=== PATIENT | male | born 1950 | race Caucasian/White ===

== ENCOUNTER → 2017-06-29 | Outpatient (CLI) | payer MEDICARE ==
--- NOTE | 2017-06-29 15:30 | XR ---
Left elbow HISTORY: Trauma one month prior, pain 3 views of the left elbow Bone mineralization, joint spaces and alignment are maintained. No evident joint effusion. Some minim al marginal spurring at the medial aspect. Vague density present at the level of the volar aspect of the joint measures approximately 3 mm. IMPRESSION: No fracture or dislocation. Mild osteoarthritic change suspected. Elbow MRI may be of jeanne efit. 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
== END | disposition home or self-care (01) ==
LOC: RADXRMAIN 14:43
PROVIDERS: ATTEND Family Medicine
DX: S59.902A Unspecified injury of left elbow, initial encounter (principal)

== ENCOUNTER → 2017-07-11 | Outpatient (CLI) | payer MEDICARE ==
--- NOTE | 2017-07-11 07:13 | MR ---
EXAMINATION TYPE: MR elbow LT wo con DATE OF EXAM: 07/11/2017 COMPARISON: NONE HISTORY: pain in lt elbow Standard multiplanar, multisequence MRI departmental protocol Multiplanar, multisequence images of the left elbow were acquired. Diffusion weighted imaging was per formed. FINDINGS: No acute osseous lesion is seen. There is no significant joint effusion. There is minimal h ypertrophic change in the ulnar trochlear articulation. The ACL, radial collateral ligament proper as well as the lateral ulnar collateral ligament is intact. The origin of the common extensor tendon is unremarkable. There is mild thickening and some abnormal signal in the common flexor tendon which ma y represent some tendinosis. The insertions of both the biceps tendon and brachialis tendon are unremarkable. The ulnar nerve is a s well as visualized portions of the radial nerve appear normal. I do not identify a loose body. IMPRESSION: 1. Mild degenerative change. 2. Thickening of the origin of the common flexor tendon with some increased signal may represent tend inosis.
== END ==
LOC: RADMRIMAIN 05:54
PROVIDERS: ATTEND Nurse Practitioner Family
DX: M19.032 Primary osteoarthritis, left wrist (principal)

== ENCOUNTER → 2018-08-18 | Outpatient (CLI) | payer MEDICARE ==
--- NOTE | 2018-08-18 11:47 | XR ---
EXAMINATION TYPE: XR chest 2V DATE OF EXAM: 08/18/2018 COMPARISON: NONE HISTORY: Status post chest tube removal or pneumothorax TECHNIQUE: Frontal and lateral views of the chest are obtained. FINDINGS: There is extensive subcutaneous emphysema extending along the neck and right lateral chest wall. Ninth rib fracture shows minimal displacement laterally. There is blunting the right costophre ellie angle. Lucency is present along the left heart border. Patient is rotated. Pneumothorax not evide nt. Heart size may be accentuated by technique. IMPRESSION: Diffuse subcutaneous emphysema. Right rib fracture. There may be residual atelectasis, s mall effusion.
== END ==
LOC: RADXRMAIN 08:08
PROVIDERS: ATTEND Nurse Practitioner Family
DX: S22.31XA Fracture of one rib, right side, initial encounter for closed fracture (principal); J43.9 Emphysema, unspecified
CPT/HCPCS: 71046